=== PATIENT | female | born 1935 | race African-American/Black ===

== ENCOUNTER 2019-12-28 20:00 | Inpatient (IN) | payer MEDICARE, OTHER ==
[~2019-12-28] VITALS: Ht 167.6 cm; Wt 85.9 kg
[2019-12-28 20:45] VITALS: BP 154/46
[2019-12-28] MEDS ORDERED: ONDANSETRON PF 4 MG/2 ML VIAL. IVP PRN (22:30)
[2019-12-28 23:00] VITALS: BP 120/51
[2019-12-28] MEDS: IV NORMAL SALINE 1000ML BAG 1,000 ML IV SCH (23:05)
[2019-12-28] MEDS: ZOLPIDEM 5 MG TABLET. PO PRN (23:05)
[2019-12-29] VITALS (12 sets, daily range): BP systolic 113–143; BP diastolic 49–106
[2019-12-29] MEDS: fentaNYL PF VIAL 100 MCG/2 ML VIAL IVP PRN ×2 (02:21→04:55)
[2019-12-29] MEDS: IV NORMAL SALINE 1000ML BAG 1,000 ML IV SCH ×2 (08:30→16:35)
--- NOTE | 2019-12-29 09:38 | PDOC2 ---
MONTY COUCH ARTIFICIAL GLASS EYE MAKER 12/29/19 0938: CONSULT Date of Consult Date of Consult DATE: 12/29/19 TIME: 09:31 Reason for Consult Reason for Consult: cholecystitis Referring Physician Referring Physician: ER Identification/Chief Complaint Chief Complaint abdominal pain Source Source: Chart review, Patient History of Present Illness Reason for Visit: Epigastric pain x 1 week, started at [facility], imaging showed GB sludge, tx to [facility]--HIDA scan showed acute cholecystitis, GB not visualized--Tx to [facility] for surgical evaluation Pain is constant, no n/v, does have chronic constipation issues Takes chronic narcotics for fibromylagia Past Medical History Cardiovascular: HTN Pulmonary: Pulmonary embolus (DVT--in past ) Rheumatologic: Fibromyalgia Endocrine: Hypothyroidism Past Surgical History Past Surgical History: No pertinent history Family History Family History: Other (noncontributory to current illness ) Social History No ALCOHOL: none Lives: with Family Current Medications Current Medications Current Medications Sodium Chloride 1,000 ml @ 100 mls/hr Q10H IV Last administered on 12/28/19at 23:05; Start 12/28/19 at 22:30 Fentanyl Citrate (Fentanyl 2ml Vial) 50 mcg PRN Q3HRS PRN IVP PAIN Last administered on 12/29/19at 04:55; Start 12/28/19 at 22:30 Ondansetron HCl (Zofran) 4 mg PRN Q4HRS PRN IVP NAUSEA/VOMITING; Start 12/28/19 at 22:30 Zolpidem Tartrate (Ambien) 5 mg PRN QHS PRN PO INSOMNIA Last administered on 12/28/19at 23:05; Start 12/28/19 at 22:30 Allergies Allergies: Coded Allergies: lisinopril (Verified Allergy, Intermediate, Rash, 12/29/19) ROS General: No: Chills, Other (fevers ) PSYCHOLOGICAL ROS: No: Anxiety, Depression Eyes: No Blurry vision, No Double vision HEENT: No: Heacaches, Sore Throat Hematological and Lymphatic: YES: Blood Clots (past ); No: Bleeding Problems Respiratory: No: Cough, Shortness of breath Cardiovascular: No Chest Pain, No Palpitations Gastrointestinal: Yes Other (see hpi) Genitourinary: No Dysuria, No Hematuria Musculoskeletal: No Joint Pain, No Muscle Pain Neurological: No Impaired Coord/balance, No Numbness/Tingling Skin: No Pruritus, No Rash Physical Exam General: Alert, Oriented X3, Cooperative HEENT: Atraumatic, PERRLA Lungs: Clear to auscultation, Normal air movement Heart: Regular rate, Normal S1, Normal S2 Abdomen: Soft, Other (TTP epigastric ) Extremities: No clubbing, No cyanosis Skin: No rashes, No breakdown Neuro: Normal gait, Normal speech Psych/Mental Status: Mental status NL, Mood NL MUSCULOSKELETAL: No deformity, No swelling Vitals VITALS Vital Signs Date Time Temp Pulse Resp B/P (MAP) Pulse Ox O2 Delivery O2 Flow Rate FiO2 12/29/19 07:00 98.4 61 20 143/58 (86) 98 Room Air 98.4 Assessment/Plan Assessment/Plan Acute cholecystitis noted covid from 12/21--negative will plan lap olga lidia today FRITZ SANTIAGO MD 12/29/19 1353: CONSULT Assessment/Plan Assessment/Plan Pt seen and examined by myself; Pt admitted at [facility] due to abdominal pain, located in upper abdomen with vomiting. Eval at [facility] consistent with cholecystitis PMH/PSH/ROS/SH as above; exam: alert oriented no distress, lungs clear, heart RR and R, abdomen soft, tender RUQ with palpation, ext neg for edema; labs/xrays reviewed. A/P) Upper abdominal pain, HIDA noted, recommend lap olga lidia, the details and risks of surgery were discussed. She understands and would like to proceed. MONTY COUCH APRN Dec 29, 2019 09:38 FRITZ SANTIAGO MD Dec 29, 2019 13:53
[2019-12-29] MEDS: MORPHINE SULFATE 4 MG/ML VIAL. IV PRN ×3 (10:21→22:27)
[2019-12-29 10:24] LABS: CALCIUM 8.5 mg/dL (8.5-10.1); CREATININE 1.3 mg/dL (0.6-1.0); GFR 47.2; POTASSIUM 3.9 mmol/L (3.5-5.1)
[2019-12-29 10:25] LABS: BASO # 0.1 x10^3/uL (0.0-0.2); BASO % 1 % (0-3); EOS # 0.3 x10^3/uL (0.0-0.7); EOS % 7 % (0-3); HEMATOCRIT 30.4 % (36.0-47.0); HEMOGLOBIN 10.3 g/dL (12.0-15.5); LYMPH # 1.3 x10^3/uL (1.0-4.8); LYMPH % 31 % (24-48); MEAN CORPUSCULAR HEMOGLOBIN 30 pg (25-35); MEAN CORPUSCULAR HGB CONC 34 g/dL (31-37); MEAN CORPUSCULAR VOLUME 88 fL (79-100); MONO # 0.4 x10^3/uL (0.0-1.1); MONO % 10 % (0-9); NEUT % 50 % (31-73); PLATELET COUNT 200 x10^3/uL (140-400); RED BLOOD COUNT 3.47 x10^6/uL (3.50-5.40); RED CELL DISTRIBUTION WIDTH 14.6 % (11.5-14.5)
[2019-12-29 10:30] LABS: ALBUMIN 2.5 g/dL (3.4-5.0); ALBUMIN/GLOBULIN RATIO 0.7 (1.0-1.7); TOTAL BILIRUBIN 0.4 mg/dL (0.2-1.0); TOTAL PROTEIN 6.3 g/dL (6.4-8.2)
--- NOTE | 2019-12-29 11:18 | NUR ---
SS following for discharge planning. SS reviewed pt chart and discussed with pt RN. Pt is from home with spouse and is currently on room air. Pt having surgery today for lap olga lidia. SS will continue to follow for discharge planning.
[2019-12-29] MEDS ORDERED: LIDOCAINE 1% PF 5 ML VIAL. ONE (11:27)
[2019-12-29] MEDS ORDERED: fentaNYL PF VIAL 100 MCG/2 ML VIAL ONE ×2 (11:27→14:17)
[2019-12-29] MEDS ORDERED: ROCURONIUM 50 MG/5 ML VIAL. ONE (11:27)
[2019-12-29] MEDS ORDERED: PROPOFOL 10 MG/ML (20ML) VIAL. IV ONE (11:27)
[2019-12-29] MEDS ORDERED: IV RINGERS,LACTATED 1000ML 1,000 ML IV SCH (11:30)
[2019-12-29] MEDS ORDERED: PROCHLORPERAZINE 10 MG/2 ML VIAL. IV PRN (11:30)
[2019-12-29] MEDS ORDERED: fentaNYL PF VIAL 100 MCG/2 ML VIAL IV PRN (11:30)
--- NOTE | 2019-12-29 11:49 | HP ---
ADMIT DATE: HISTORY OF PRESENT ILLNESS: The patient is an 84-year-old -Wallis[place] female patient who started complaining of abdominal pain, nausea about a week ago. She was seen at [facility], was discharged home and was evaluated at [facility], was there for 2 days and from there, she was transferred to [facility] according to her where she was investigated and found to have acute cholecystitis and therefore she was transferred to [facility] for definitive surgical treatment. When I saw her, she was continued to complain of abdominal pain and stated that fentanyl is not really helping her so she was switched to morphine. PAST MEDICAL HISTORY: Significant for hypertension, hypothyroidism, fibromyalgia, osteoarthritis and osteoporosis. She has urge incontinence and bilateral sensorineural deafness. PAST SURGICAL HISTORY: Significant for cataract and lump removed from her left shoulder, it was actually benign. ALLERGIES: SHE IS ALLERGIC TO LISINOPRIL. MEDICATIONS: She is on amlodipine besylate 5 mg once a day. She is on morphine sulfate extended release 30 mg twice a day, hydrocodone/APAP 5/325 one tablet every 6 hours, gabapentin 300 mg 3 times a day, Ambien 5 mg at bedtime, Pataday 1 drop to both eyes daily. She is on Flonase 2 sprays to each nostril once a day, Colace 100 mg twice a day, sucralfate 1 gram 4 times a day, Protonix 40 mg once a day, metoclopramide 10 mg 3 times a day before meals and levothyroxine sodium 75 mcg once a day. FAMILY HISTORY: She has 1 living sister at the age of 92 and seemingly healthy. All 4 brothers have , one at age of 65 because of complication of diabetes, one at the age of 84 because of congestive heart failure, two of them because of complication of dementia, one at the age of 80 and one at the age of 88, she has 2 sisters who are . She does not know the cause of their . Her father at age of 88 because of COPD and mother at the age of 67 because of myocardial infarction. SOCIAL HISTORY: She is , has 2 sons and 1 daughter. She is an ex-smoker, quit 50 years ago. She does not drink alcohol. 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 REVIEW OF SYSTEMS: As per history of present illness. PHYSICAL EXAMINATION: GENERAL: When I examined her, she looked pale, but no jaundice or cyanosis. No lymphadenopathy, no thyromegaly. No jugular venous distention. No lower limb edema. VITAL SIGNS: Her heart rate was 52, blood pressure was 133/61, temperature 97.7, respiratory rate was 16, and oxygen saturation was 93%. HEAD, EYES, EARS, NOSE AND THROAT: Showed normocephalic, atraumatic. NECK: Supple. HEART: Showed normal first and second heart sounds. No gallop, rub or murmur. CHEST: Clear to auscultation. No crepitation or rhonchi. ABDOMEN: Distended, soft, nontender. No guarding or rigidity. No organomegaly. All hernial orifice intact. Bowel sounds normal. NEUROLOGIC: She was awake, alert, responding appropriately. All cranial nerves intact. EXTREMITIES: She moves extremities without difficulty. LABORATORY DATA: Showed a white cell count of 4000, hemoglobin 10, hematocrit 30, MCV 88 and platelet count of 200,000. Her chemistry showed a serum sodium 144, potassium 3.9, chloride 109, bicarbonate 27, anion gap of 8, BUN 10, creatinine 1.3, estimated GFR was 47 mL per minute. Her glucose was 86, calcium was 8.5. Total bilirubin, ALT were normal. AST and alkaline phosphatase slightly elevated. Total protein 6.3, albumin 2.5. She apparently has had a HIDA scan done, which basically showed that her gallbladder is not identified and this is compatible with acute cholecystitis in the appropriate clinical setting. Small bowel is not visualized by 1 hour following tracer administration which represents biliary dyskinesia in appropriate clinical setting. ASSESSMENT AND PLAN: The patient was admitted to [facility] for evaluation by the surgical team. DARIEN SZYMANSKI MD DR: FLO/nhung JOB#: [id number] / [id number]
[2019-12-29] MEDS ORDERED: IOHEXOL 300 MG/ML 50 ML VIAL. ONE (12:15)
[2019-12-29] MEDS ORDERED: SURGICEL HEMOSTAT 4X8 EACH. ONE (12:16)
[2019-12-29] MEDS ORDERED: BUPIVACAINE MPF 0.5% 30 ML VIAL. ONE (12:16)
[2019-12-29] MEDS ORDERED: DEXAMETHASONE SOD PHOS 4 MG/ML VIAL ONE ×2 (12:40)
[2019-12-29] MEDS ORDERED: ONDANSETRON PF 4 MG/2 ML VIAL. ONE (12:40)
[2019-12-29] MEDS ORDERED: NEOSTIGMINE METHYLSULFATE 5 MG/5 ML SYRINGE. ONE (13:34)
[2019-12-29] MEDS ORDERED: GLYCOPYRROLATE 1 MG/5 ML VIAL. ONE (13:34)
--- NOTE | 2019-12-29 13:55 | PDOC4 ---
Operative Note Operative Note Operative Note: Preoperative Diagnosis: Calculus cholecystitis Postoperative Diagnosis: Same Procedure: Laparoscopic cholecystectomy with intraoperative cholangiogram Surgeons: Rajesh Maintenance Aide: Jose Daniel QUINTEROS Anesthesia: Gen. Estimated Blood Loss: 10 mL Specimen: Gallbladder to pathology Drains: None Complications: None Indications: The patient is an 84-year-old female who was admitted with abdominal pain. Her evaluation is consistent with calculus cholecystitis. Surgical treatment was offered by means of a laparoscopic cholecystectomy. The risks of surgery were discussed which include bleeding, infection, bile duct injury, bile leak, pain, the potential for additional surgeries or procedures. The patient understands and would like to proceed. Description: The patient was taken to the operating room and laid supine on the operating table. General anesthesia was performed. The abdomen was prepped with ChloraPrep and draped in a standard surgical fashion. A small infraumbilical incision was made with a scalpel. The Veress needle was then in serted and a pneumoperitoneum was then created. A 5 mm trocar was then inserted and the laparoscope was introduced. In the upper midabdomen a 5 mm trocar was inserted and in the right upper quadrant two 2.3 mm mini lap graspers were inserted. The gallbladder was retracted cephalad. The cystic duct was dissected free from surrounding tissues. One clip was placed on the duct near the gallbladder junction. An opening was made in the duct and a cholangiocatheter placed within and secured with a clip. Using contrast dye and fluoroscopy an intraoperative cholangiogram was performed that appeared unremarkable. The clip and catheter were then withdrawn. Three clips were placed on the cystic duct and it was divided. The cystic artery was then identified, dissected free, doubly clipped and divided as well. The gallbladder was then mobilized away from the liver with cautery. The umbilical 5 millimeter trocar was exchanged for an 11 millimeter trocar. The gallbladder was then placed in an endoscopic bag and extracted at the umbilical trocar site. The fascia there was closed with an 0 Vicryl suture. All blood and irrigation fluid was suctioned and hemostasis was good. The remaining ports were removed and the pneumoperitoneum was relieved. The skin incisions were injected with half percent Marcaine with epinephrine, and all were closed using 4-0 Monocryl suture. Steri-Strips and dressings were then applied. The patient tolerated the procedure well and was sent to the recovery room in stable condition. At the end of the case all counts were correct. FRITZ SANTIAGO MD Dec 29, 2019 13:55
--- NOTE | 2019-12-29 14:03 | RAD ---
EXAM: INTRAOPERATIVE CHOLANGIOGRAM. HISTORY: Intraoperative cholangiogram with cholecystectomy. COMPARISON: None. FINDINGS: 4 fluoroscopic images are obtained intraoperatively during injection of the cystic duct remnant after cholecystectomy. There are no filling defects to suggest retained stones. The common duct is moderately dilated. There is a low insertion of the cystic duct remnant. Fluoroscopy time <1 minute. IMPRESSION: 1. Moderate common duct dilatation. Correlate for cholestasis to assess significance. 2. No evidence of retained stones. Electronically signed by: Gloria Pyle MD (12/29/2019 2:00 PM) [id number]
[2019-12-29] MEDS: fentaNYL PF VIAL 100 MCG/2 ML VIAL IV PRN ×2 (14:36→14:43)
[2019-12-29] MEDS ORDERED: MORPHINE SULFATE 2 MG/ML VIAL. ONE (14:38)
[2019-12-29] MEDS: MORPHINE SULFATE 2 MG/ML VIAL. IV PRN ×2 (14:43→15:00)
[2019-12-29] MEDS ORDERED: HYDROmorphone 2 MG/ML VIAL ONE (15:06)
[2019-12-29] MEDS: HYDROmorphone 2 MG/ML VIAL IV PRN ×3 (15:12→16:05)
[2019-12-29] MEDS: ZOLPIDEM 5 MG TABLET. PO PRN (22:27)
[2019-12-30] MEDS: IV NORMAL SALINE 1000ML BAG 1,000 ML IV SCH ×3 (02:23→21:42)
[2019-12-30 03:08] VITALS: BP 104/48
[2019-12-30] MEDS: MORPHINE SULFATE 4 MG/ML VIAL. IV PRN ×4 (04:26→21:41)
[2019-12-30 07:00] VITALS: BP 141/115
[2019-12-30] MEDS: fentaNYL PF VIAL 100 MCG/2 ML VIAL IV PRN (07:41)
[2019-12-30] MEDS ORDERED: SUCR1TAB PO (09:30)
[2019-12-30] MEDS ORDERED: ZOLP5TAB PO (09:30)
[2019-12-30] MEDS ORDERED: LEVO88TA4 PO (09:30)
[2019-12-30] MEDS ORDERED: GABA-585 PO (09:30)
[2019-12-30] MEDS ORDERED: METO10TA PO (09:30)
[2019-12-30] MEDS ORDERED: PANT20TA2 PO (09:30)
[2019-12-30] MEDS ORDERED: AMLO5TAB10 PO (09:30)
[2019-12-30] MEDS ORDERED: KETO5DRO89 OD (09:30)
[2019-12-30] MEDS ORDERED: DOCU-109 PO (09:30)
--- NOTE | 2019-12-30 10:58 | PN ---
DATE: 12/30/2019 SUBJECTIVE: The patient is resting, slightly propped up in bed, no apparent distress. She continued to complain of pain in the right upper quadrant. She said she was unable to eat, although she has passed gas. She has had her laparoscopic cholecystectomy with intraoperative cholangiogram done successfully yesterday. PHYSICAL EXAMINATION: GENERAL: When I examined her today, she looked well and was clearly in no apparent respiratory distress. No pallor, jaundice, cyanosis or thyromegaly. No jugular venous distention. No limb edema. VITAL SIGNS: Her heart rate was 69, blood pressure was 141/115, temperature was 98.5, respiratory rate was 17 and oxygen saturation was 95%. HEAD, EYES, EARS, NOSE AND THROAT: Showed normocephalic, atraumatic. NECK: Supple. HEART: Showed normal first and second heart sounds. No gallop or murmur. CHEST: Clear to auscultation. No crepitation or rhonchi. ABDOMEN: Distended, soft. Tenderness mostly in the right upper quadrant. No guarding or rigidity. No organomegaly. All hernial orifice intact. Bowel sounds normal. NEUROLOGIC: She is grossly intact. Her intake and output were incompletely recorded. LABORATORY DATA: She has no lab work done this morning; however, her COVID-19 by PCR was negative. As of yesterday, her hemoglobin was 10, hematocrit 30 with normal white cell count and platelets. Her chemistry showed a BUN of 10, creatinine 1.3. ASSESSMENT: Acute cholecystitis, status post laparoscopic cholecystectomy done successfully. The patient has multiple other medical problems including hypertension, hypothyroidism, fibromyalgia, osteoarthritis and osteoporosis, does have also urge incontinence and bilateral sensorineural deafness. PLAN: My plan is to reconcile all her medication and advance diet as tolerated and will be discharged home tomorrow. DARIEN SZYMANSKI MD DR: FLO/nhung JOB#: [id number] / [id number]
[2019-12-30 11:00] VITALS: BP 153/64
[2019-12-30] MEDS: amLODIPine BESYLATE 5 MG TABLET PO SCH (11:10)
[2019-12-30] MEDS: KETOTIFEN FUMARATE 0.025% OPHTH SOLUTION BOTTLE. OD SCH ×2 (11:11→21:41)
[2019-12-30] MEDS: METOCLOPRAMIDE 10 MG TABLET. PO SCH ×2 (11:11→17:12)
[2019-12-30] MEDS: SUCRALFATE 1 GM TABLET. PO SCH ×3 (11:11→21:41)
[2019-12-30] MEDS: LEVOTHYROXINE 88 MCG TABLET PO SCH (11:11)
[2019-12-30] MEDS: DOCUSATE SODIUM 100 MG CAPSULE. PO SCH ×2 (11:11→21:41)
[2019-12-30] MEDS: PANTOPRAZOLE 40 MG TABLET.DR. PO SCH (11:13)
--- NOTE | 2019-12-30 12:07 | PDOC ---
SURGICAL PROGRESS NOTE Subjective resting pain issues, acute on chronic no emesis Vital Signs Vital Signs Date Time Temp Pulse Resp B/P (MAP) Pulse Ox O2 Delivery O2 Flow Rate FiO2 12/30/19 12:00 20 12/30/19 11:11 Room Air 12/30/19 11:10 69 141/115 12/30/19 07:00 98.5 95 98.5 12/29/19 17:59 2.0 I&O Intake and Output 12/30/19 07:00 Intake Total 950 ml Output Total 5 ml Balance 945 ml Intake IV Total 950 ml Output Estimated Blood Loss 5 ml # Voids 3 General: Alert, Oriented X3, Cooperative Abdomen: Soft, Other (lap dressings dry) Labs Laboratory Tests Test 12/28/19 23:00 12/29/19 09:50 Coronavirus (COVID-19)(PCR) Negative (NEGATIVE) White Blood Count 4.0 x10^3/uL (4.0-11.0) Red Blood Count 3.47 x10^6/uL (3.50-5.40) Hemoglobin 10.3 g/dL (12.0-15.5) Hematocrit 30.4 % (36.0-47.0) Mean Corpuscular Volume 88 fL (79-100) Mean Corpuscular Hemoglobin 30 pg (25-35) Mean Corpuscular Hemoglobin Concent 34 g/dL (31-37) Red Cell Distribution Width 14.6 % (11.5-14.5) Platelet Count 200 x10^3/uL (140-400) Neutrophils (%) (Auto) 50 % (31-73) Lymphocytes (%) (Auto) 31 % (24-48) Monocytes (%) (Auto) 10 % (0-9) Eosinophils (%) (Auto) 7 % (0-3) Basophils (%) (Auto) 1 % (0-3) Neutrophils # (Auto) 2.0 x10^3/uL (1.8-7.7) Lymphocytes # (Auto) 1.3 x10^3/uL (1.0-4.8) Monocytes # (Auto) 0.4 x10^3/uL (0.0-1.1) Eosinophils # (Auto) 0.3 x10^3/uL (0.0-0.7) Basophils # (Auto) 0.1 x10^3/uL (0.0-0.2) Sodium Level 144 mmol/L (136-145) Potassium Level 3.9 mmol/L (3.5-5.1) Chloride Level 109 mmol/L (98-107) Carbon Dioxide Level 27 mmol/L (21-32) Anion Gap 8 (6-14) Blood Urea Nitrogen 10 mg/dL (7-20) Creatinine 1.3 mg/dL (0.6-1.0) Estimated GFR (Cockcroft-Gault) 47.2 BUN/Creatinine Ratio 8 (6-20) Glucose Level 86 mg/dL (70-99) Calcium Level 8.5 mg/dL (8.5-10.1) Total Bilirubin 0.4 mg/dL (0.2-1.0) Aspartate Amino Transf (AST/SGOT) 61 U/L (15-37) Alanine Aminotransferase (ALT/SGPT) 51 U/L (14-59) Alkaline Phosphatase 151 U/L (46-116) Total Protein 6.3 g/dL (6.4-8.2) Albumin 2.5 g/dL (3.4-5.0) Albumin/Globulin Ratio 0.7 (1.0-1.7) Assessment/Plan s/p olga lidia can dc when medically ready Justicifation of Admission Dx: Justifications for Admission: Justification of Admission Dx: Yes Comments: cholecystitis MONTY COUCH BORING INSPECTOR Dec 30, 2019 12:07
[2019-12-30] MEDS: GABAPENTIN 100 MG CAPSULE. PO SCH ×2 (12:54→21:41)
--- NOTE | 2019-12-30 14:37 | NUR ---
SS following up with discharge planning. SS reviewed pt chart and discussed with pt RN. Pt is currently on room air. Pt had surgery 12/29/2019. Per RN, possible discharge to home tomorrow. SS will continue to follow for discharge planning.
[2019-12-30 15:00] VITALS: BP 102/77
[2019-12-30] MEDS ORDERED: SIMETHICONE 80 MG TAB.CHEW PO PRN (15:30)
--- NOTE | 2019-12-30 15:49 | EKG ---
[facility] [address] [place] [address] Test Date: 2019-12-30 Test Time: 15:43:05 Pat Name: JOSELITO HENRY Department: Room: 442 Gender: F Social Media Campaign Manager: FITZ : 1935 Requested By: DARIEN SZYMANSKI Order Number: [id number] Reading MD: Measurements Intervals Rogers Rate: 75 P: 35 SC: 130 QRS: -9 QRSD: 82 T: 36 QT: 356 QTc: 400 Interpretive Statements SINUS RHYTHM POSSIBLE LEFT ATRIAL ABNORMALITY LEFTWARD AXIS POSSIBLY ABNORMAL ECG RI6.02 No previous ECG available for comparison
--- NOTE | 2019-12-30 18:10 | PATHOLOGY ---
[facility] Accession Number: [id number] . 01 Material submitted: . gallbladder - GALLBLADDER AND CONTENTS . 01 Clinical history: . cholecystitis . 02 Diagnosis: Gallbladder, laparoscopic cholecystectomy: - Chronic follicular and early mild acute cholecystitis with focally increased eosinophils. LBQ 12/30/2019 1605 Local . 02 Comment: There are no calculi identified within the gallbladder lumen or specimen container. There is no evidence of malignancy. (JPM/db; 12/30/2019) . 02 Electronically signed: . Filiberto Fragoso MD, Pathologist NPI- [id number] . 01 Gross description: . The specimen is received in formalin, labeled "Klugh, Aleksandra, gallbladder and contents" and consists of a previously punctured pink-martinez gallbladder measuring 9.7 x 2.7 x 0.6 cm. The margin is inked. Opening reveals granular green bile and no stones are present. The mucosa is inflamed pink-martinez with a wall thickness of 0.1 cm. No lymph nodes or gross lesions are identified. Senior Staff Specialized Employment sections are submitted in A1. ([facility]; 12/29/2019) JFQ/JFQ 12/30/2019 1719 Local . 02 Pathologist provided ICD-10: K81.2 . 02 CPT . 570383 Specimen Comment: A courtesy copy of this report has been sent to [phone] Specimen Comment: [id number], Specimen Comment: Report sent to ,DR SAUCEDA / DR SZYMANSKI Performed at: [address], [place], [place] [id number] MD Jarrett Gore MD Phone: [phone] Performed at: 02 [facility] [address] [place], [place] [id number] MD Filiberto Fragoso MD Phone: [phone]
[2019-12-30 19:50] VITALS: BP 151/61
[2019-12-30 23:00] VITALS: BP 147/62
[2019-12-31 03:00] VITALS: BP 153/54
[2019-12-31] MEDS: MORPHINE SULFATE 4 MG/ML VIAL. IV PRN ×4 (04:42→19:42)
[2019-12-31 05:49] LABS: ALBUMIN 2.5 g/dL (3.4-5.0); ALBUMIN/GLOBULIN RATIO 0.7 (1.0-1.7); CALCIUM 8.1 mg/dL (8.5-10.1); GFR 63.9; POTASSIUM 4.3 mmol/L (3.5-5.1); TOTAL BILIRUBIN 1.5 mg/dL (0.2-1.0); TOTAL PROTEIN 6.1 g/dL (6.4-8.2)
[2019-12-31] MEDS: LEVOTHYROXINE 88 MCG TABLET PO SCH (05:53)
[2019-12-31 06:20] LABS: HEMATOCRIT 29.7 % (36.0-47.0); HEMOGLOBIN 10.1 g/dL (12.0-15.5); RED BLOOD COUNT 3.37 x10^6/uL (3.50-5.40); RED CELL DISTRIBUTION WIDTH 14.8 % (11.5-14.5); WHITE BLOOD COUNT 8.1 x10^3/uL (4.0-11.0)
[2019-12-31 07:15] VITALS: BP 128/50
[2019-12-31] MEDS: METOCLOPRAMIDE 10 MG TABLET. PO SCH ×3 (08:27→16:30)
[2019-12-31] MEDS: SUCRALFATE 1 GM TABLET. PO SCH ×4 (08:27→21:45)
[2019-12-31] MEDS: KETOTIFEN FUMARATE 0.025% OPHTH SOLUTION BOTTLE. OD SCH ×2 (08:27→21:45)
[2019-12-31] MEDS: PANTOPRAZOLE 40 MG TABLET.DR. PO SCH (08:27)
[2019-12-31] MEDS: DOCUSATE SODIUM 100 MG CAPSULE. PO SCH ×2 (08:27→21:45)
[2019-12-31] MEDS: amLODIPine BESYLATE 5 MG TABLET PO SCH (08:27)
[2019-12-31] MEDS: IV NORMAL SALINE 1000ML BAG 1,000 ML IV SCH ×2 (08:34→19:42)
[2019-12-31] MEDS: GABAPENTIN 100 MG CAPSULE. PO SCH ×3 (10:28→21:45)
--- NOTE | 2019-12-31 10:32 | PN ---
DATE: 12/31/2019 SUBJECTIVE: The patient is resting, slightly propped up in bed, in no apparent distress. She continued to complain of pain in the epigastric and right upper quadrant. She is unable to tolerate her food. Her liver enzymes have dramatically risen, in fact, both bilirubin and alkaline phosphatase have dramatically risen, suggesting it probably has stone in her common bile duct. PHYSICAL EXAMINATION: GENERAL: When I examined her, she looked pale, but no jaundice, cyanosis or thyromegaly. No jugular venous distention. No limb edema. VITAL SIGNS: Her heart rate was 71, blood pressure was 128/50, temperature was 99, respiratory rate was 16, and oxygen saturation was 100%. HEAD, EYES, EARS, NOSE AND THROAT: Normocephalic, atraumatic. NECK: Supple. HEART: Showed normal first and second heart sounds. No gallop, rub or murmur. CHEST: Clear to auscultation. No crepitation or rhonchi. ABDOMEN: Distended, soft. Tenderness mostly in the epigastric and right upper quadrant area and there is no guarding or rigidity. No organomegaly. All hernial orifice intact. Bowel sounds normal. NEUROLOGIC: She is awake, alert, responding appropriately. All cranial nerves intact. She moves extremities without difficulty. Her intake was 915, output was recorded. LABORATORY DATA: Her lab work this morning showed a serum sodium 142, potassium 4.3, chloride 109, bicarbonate 22, anion gap of 11, BUN 7, creatinine 1, estimated GFR was 64 mL per minute. Her glucose was 101, calcium was 8.1. Total bilirubin is 1.5. AST, ALT are all elevated. Alkaline phosphatase has dramatically risen to 321. Total bilirubin was 6.1, albumin 2.5. Her white cell count was 8000, hemoglobin 10, hematocrit 30, MCV 88 and platelet count 215,000. ASSESSMENT: 1. Acute cholecystitis, status post laparoscopic cholecystectomy. 2. The patient's liver enzymes have dramatically risen in a pattern suggestive of biliary obstruction concerning for choledocholithiasis. 3. The patient has multiple other medical problems including: A. Hypertension. B. Hypothyroidism. C. Fibromyalgia. D. Osteoarthritis and osteoporosis. PLAN: My plan is to order abdominal ultrasound and discuss the finding with the surgical team as she might require ERCP and add serum lipase in her labs this morning. DARIEN SZYMANSKI MD DR: Maribel JOB#: [id number] / [id number]
[2019-12-31 11:00] VITALS: BP 124/59
--- NOTE | 2019-12-31 11:54 | NUR ---
Patient NPO for US. 1100 and 1130 medication dose held.
--- NOTE | 2019-12-31 12:41 | PDOC2 ---
GI CONSULT Reason For Consult: Abnormal LFT's after cholecystectomy HPI: HPI: Pleasant 84 y/o female we are asked to see re: above. Presented to [facility] prior to transfer here with abdominal pain; had no labs, but did have HIDA with non-viz GB, no other imaging. Had L/S olga lidia with IOC on 12/28. IOC read as w/o stones bu t dilated CBD w/o focal stricture. Had normal LFT's pre-op. Today transaminases, AP and bili all up some as well as lipase. Presenting pain is better, now with what seems incisional complaints. Had not been able to tolerate po w/o N, V. Did have CT at [facility] in 2017 with "prominent" common duct and distended GB. Long h/o GERD on PPI and prokinetic. Occasional dysphagia; EGD with dilation x 2 at [facility]. Unclearly had stricture. No PUD, liver or pancreatic history. Remotely quit smoking. No alcohol use. Chronic constipation maybe related to chronic narc use; takes Colace and Ducolax. No chronic diarrhea or overt bleeding. Wt. stable. Appeitite I think OK but avoid eating due to the "dysphagia". Colonoscopy x 2 with polyps on initial one, then OK second. HIDA at [facility] mentions marked delay in tracer reaching duodenum and "biliary dyskinesia". PMH: PMH: HTN, hypothyroidism, FMS, OA, OP, PIPPA, deafness. S/P ECCE, excision benign lesion from left shoulder. FH: Family History: CAD, DM Social History: Smoke: No ALCOHOL: none Drugs: None ROS: GEN: Denies fevers, chills, sweats HEENT: Denies blurred vision, sore throat CV: Denies chest pain RESP: Denies shortness of air, cough GI: Per HPI : Denies hematuria, dysuria ENDO: Denies weight changes NEURO: Denies confusion, dizziness MSK: Denies weakness, joint pain/swelling SKIN: Denies jaundice, pruritus Vitals: Vitals: Vital Signs Date Time Temp Pulse Resp B/P (MAP) Pulse Ox O2 Delivery O2 Flow Rate FiO2 12/31/19 09:13 Room Air 12/31/19 08:27 71 128/50 12/31/19 07:15 99.0 16 100 99.0 12/30/19 16:05 2.0 Labs: Labs: Laboratory Tests Test 12/31/19 04:40 White Blood Count 8.1 x10^3/uL (4.0-11.0) Red Blood Count 3.37 x10^6/uL (3.50-5.40) Hemoglobin 10.1 g/dL (12.0-15.5) Hematocrit 29.7 % (36.0-47.0) Mean Corpuscular Volume 88 fL (79-100) Mean Corpuscular Hemoglobin 30 pg (25-35) Mean Corpuscular Hemoglobin Concent 34 g/dL (31-37) Red Cell Distribution Width 14.8 % (11.5-14.5) Platelet Count 215 x10^3/uL (140-400) Sodium Level 142 mmol/L (136-145) Potassium Level 4.3 mmol/L (3.5-5.1) Chloride Level 109 mmol/L (98-107) Carbon Dioxide Level 22 mmol/L (21-32) Anion Gap 11 (6-14) Blood Urea Nitrogen 7 mg/dL (-20) Creatinine 1.0 mg/dL (0.6-1.0) Estimated GFR (Cockcroft-Gault) 63.9 BUN/Creatinine Ratio 7 (6-20) Glucose Level 101 mg/dL (70-99) Calcium Level 8.1 mg/dL (8.5-10.1) Total Bilirubin 1.5 mg/dL (0.2-1.0) Aspartate Amino Transf (AST/SGOT) 207 U/L (15-37) Alanine Aminotransferase (ALT/SGPT) 89 U/L (14-59) Alkaline Phosphatase 321 U/L (46-116) Total Protein 6.1 g/dL (6.4-8.2) Albumin 2.5 g/dL (3.4-5.0) Albumin/Globulin Ratio 0.7 (1.0-1.7) Lipase 2168 U/L (73-393) Allergies: Coded Allergies: lisinopril (Verified Allergy, Intermediate, Rash, 12/29/19) Medications: Current Medications Medications (Trade) Dose Ordered Sig/Charisse Route PRN Reason Start Time Stop Time Status Last Admin Dose Admin Gabapentin (Neurontin) 100 mg TID PO 12/30/19 14:00 12/31/19 10:28 Simethicone (Gas-X) 80 mg PRN AFTMEALHC PRN PO GAS / BLOATING 12/30/19 15:30 12/30/19 15:43 Imaging: Imaging: IOC reviewed. Drains well. Kind of a "shelf" appearance to distal duct but open. PE: GEN: NAD HEENT: Atraumatic, PERRLA LUNGS: CTAB HEART: RRR, no murmurs ABD: NABS, S/ND/incisional tenderness, no masses EXTREMITY: No edema SKIN: No rashes, no jaundice NEURO/PSYCH: A & O 3 A/P: A/P: IMP: Abnormal LFT's, lipase post-olga lidia. Sometimes can be from ductal manipulation. 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 Cholecystectomy can unmask this as loss of "pressure sink". Given no progressive issues since 2017 CT, seems unlikely malignant. GERD Occasional dysphagia; since on prokinetic maybe has presbyesophagus. Probable OIC. H/o colon polyps with negative second surveillance exam. REC: Start/continue PPI. Repeat LFT's in AM. If progressive rise, further investigation. OK to try diet. --further rec's pending. MARIA DE JESUS HALL MD Dec 31, 2019 12:40
--- NOTE | 2019-12-31 13:55 | RAD ---
Abdominal ultrasound 12/31/2019. Reason for exam: Abnormal liver enzymes. Recent cholecystectomy. FINDINGS: The liver is homogeneous in echotexture. No focal lesion is seen. No intrahepatic biliary ductal dilatation is seen. The common bile duct is borderline dilated with diameter of 7 mm. The right kidney shows no solid mass or obstruction. It measures 9.7 cm in length. There is a 3.7 cm cyst at the upper pole. Pancreas was poorly seen due to overlying bowel gas. The abdominal aorta was also not well seen. The IVC is patent near the liver. IMPRESSION: No apparent liver abnormality. The intrahepatic biliary tree is borderline dilated, although probably within normal limits for the patient's advanced age. Electronically signed by: Albert Ford Jr., MD (12/31/2019 1:52 PM) [id number]
--- NOTE | 2019-12-31 14:06 | PDOC ---
SURGICAL PROGRESS NOTE Subjective Pt with c/o abd pain and unable to eat Vital Signs Vital Signs Date Time Temp Pulse Resp B/P (MAP) Pulse Ox O2 Delivery O2 Flow Rate FiO2 12/31/19 11:00 98.6 72 18 124/59 (80) 100 Room Air 98.6 12/30/19 16:05 2.0 I&O l Intake and Output 12/31/19 07:00 Intake Total 310 ml Balance 310 ml Intake Oral 310 ml # Voids 3 General: Alert, Oriented X3, Cooperative, mild distress Abdomen: Soft, Other (mild TTP epigastric) Labs Laboratory Tests Test 12/31/19 04:40 White Blood Count 8.1 x10^3/uL (4.0-11.0) Red Blood Count 3.37 x10^6/uL (3.50-5.40) Hemoglobin 10.1 g/dL (12.0-15.5) Hematocrit 29.7 % (36.0-47.0) Mean Corpuscular Volume 88 fL (79-100) Mean Corpuscular Hemoglobin 30 pg (25-35) Mean Corpuscular Hemoglobin Concent 34 g/dL (31-37) Red Cell Distribution Width 14.8 % (11.5-14.5) Platelet Count 215 x10^3/uL (140-400) Sodium Level 142 mmol/L (136-145) Potassium Level 4.3 mmol/L (3.5-5.1) Chloride Level 109 mmol/L (98-107) Carbon Dioxide Level 22 mmol/L (21-32) Anion Gap 11 (6-14) Blood Urea Nitrogen 7 mg/dL (7-20) Creatinine 1.0 mg/dL (0.6-1.0) Estimated GFR (Cockcroft-Gault) 63.9 BUN/Creatinine Ratio 7 (6-20) Glucose Level 101 mg/dL (70-99) Calcium Level 8.1 mg/dL (8.5-10.1) Total Bilirubin 1.5 mg/dL (0.2-1.0) Aspartate Amino Transf (AST/SGOT) 207 U/L (15-37) Alanine Aminotransferase (ALT/SGPT) 89 U/L (14-59) Alkaline Phosphatase 321 U/L (46-116) Total Protein 6.1 g/dL (6.4-8.2) Albumin 2.5 g/dL (3.4-5.0) Albumin/Globulin Ratio 0.7 (1.0-1.7) Lipase 2168 U/L (73-393) Laboratory Tests Test 12/31/19 04:40 White Blood Count 8.1 x10^3/uL (4.0-11.0) Red Blood Count 3.37 x10^6/uL (3.50-5.40) Hemoglobin 10.1 g/dL (12.0-15.5) Hematocrit 29.7 % (36.0-47.0) Mean Corpuscular Volume 88 fL (79-100) Mean Corpuscular Hemoglobin 30 pg (25-35) Mean Corpuscular Hemoglobin Concent 34 g/dL (31-37) Red Cell Distribution Width 14.8 % (11.5-14.5) Platelet Count 215 x10^3/uL (140-400) Sodium Level 142 mmol/L (136-145) Potassium Level 4.3 mmol/L (3.5-5.1) Chloride Level 109 mmol/L (98-107) Carbon Dioxide Level 22 mmol/L (21-32) Anion Gap 11 (6-14) Blood Urea Nitrogen 7 mg/dL (7-20) Creatinine 1.0 mg/dL (0.6-1.0) Estimated GFR (Cockcroft-Gault) 63.9 BUN/Creatinine Ratio 7 (6-20) Glucose Level 101 mg/dL (70-99) Calcium Level 8.1 mg/dL (8.5-10.1) Total Bilirubin 1.5 mg/dL (0.2-1.0) Aspartate Amino Transf (AST/SGOT) 207 U/L (15-37) Alanine Aminotransferase (ALT/SGPT) 89 U/L (14-59) Alkaline Phosphatase 321 U/L (46-116) Total Protein 6.1 g/dL (6.4-8.2) Albumin 2.5 g/dL (3.4-5.0) Albumin/Globulin Ratio 0.7 (1.0-1.7) Lipase 2168 U/L (73-393) Problem List elevated LFTs US essentially normal appreciate GI w/u cont supportive care Justicifation of Admission Dx: Justifications for Admission: Justification of Admission Dx: Yes ARACELIS GORMAN MD 11, 2020 14:06
[2019-12-31 15:00] VITALS: BP 139/50
[2019-12-31 19:00] VITALS: BP 131/53
[2019-12-31 23:00] VITALS: BP 139/46
[2019-12-31] MEDS: ZOLPIDEM 5 MG TABLET. PO PRN (23:09)
[2020-01-01 03:00] VITALS: BP 121/46
[2020-01-01] MEDS: IV NORMAL SALINE 1000ML BAG 1,000 ML IV SCH (04:40)
[2020-01-01] MEDS: MORPHINE SULFATE 4 MG/ML VIAL. IV PRN ×5 (04:40→21:17)
[2020-01-01 05:46] LABS: HEMATOCRIT 29.5 % (36.0-47.0); HEMOGLOBIN 9.9 g/dL (12.0-15.5); RED BLOOD COUNT 3.36 x10^6/uL (3.50-5.40); RED CELL DISTRIBUTION WIDTH 14.9 % (11.5-14.5); WHITE BLOOD COUNT 7.2 x10^3/uL (4.0-11.0)
[2020-01-01] MEDS: LEVOTHYROXINE 88 MCG TABLET PO SCH (05:54)
[2020-01-01 05:56] LABS: ALBUMIN 2.3 g/dL (3.4-5.0); ALBUMIN/GLOBULIN RATIO 0.7 (1.0-1.7); CALCIUM 7.9 mg/dL (8.5-10.1); GFR 63.9; POTASSIUM 3.1 mmol/L (3.5-5.1); TOTAL BILIRUBIN 0.6 mg/dL (0.2-1.0); TOTAL PROTEIN 5.8 g/dL (6.4-8.2)
[2020-01-01 07:59] VITALS: BP 133/63
[2020-01-01] MEDS: SUCRALFATE 1 GM TABLET. PO SCH ×4 (08:27→21:10)
[2020-01-01] MEDS: METOCLOPRAMIDE 10 MG TABLET. PO SCH ×3 (08:28→16:25)
[2020-01-01] MEDS: PANTOPRAZOLE 40 MG TABLET.DR. PO SCH (08:28)
[2020-01-01] MEDS: DOCUSATE SODIUM 100 MG CAPSULE. PO SCH ×2 (08:28→21:10)
[2020-01-01] MEDS: GABAPENTIN 100 MG CAPSULE. PO SCH ×3 (08:28→21:10)
[2020-01-01] MEDS: amLODIPine BESYLATE 5 MG TABLET PO SCH (08:28)
[2020-01-01] MEDS: KETOTIFEN FUMARATE 0.025% OPHTH SOLUTION BOTTLE. OD SCH ×2 (08:29→21:17)
--- NOTE | 2020-01-01 09:26 | PN ---
DATE: 01/01/2020 SUBJECTIVE: The patient is resting, slightly propped up in bed, in no apparent distress, awake, alert. She is feeling generally better, although she is worried about going home. Her liver enzymes have definitely risen yesterday as well as her lipase was 2168. However, all her liver enzymes and serum lipase are down. PHYSICAL EXAMINATION: GENERAL: When I examined her, she looked pale, no jaundice, cyanosis, or thyromegaly. No jugular venous distension. No lower limb edema. VITAL SIGNS: Her heart rate was 74, blood pressure was 121/46, temperature 98.7, respiratory rate was 18, and oxygen saturation was 90%. HEAD, EYES, EARS, NOSE, AND THROAT: Normocephalic, atraumatic. NECK: Supple. HEART: Showed normal first and second heart sounds. No gallop, rub, or murmur. CHEST: Clear to auscultation. No crepitation or rhonchi. ABDOMEN: Slightly distended, soft with tenderness mostly in the right upper quadrant. No guarding or rigidity. No organomegaly. All hernial orifice intact. Bowel sounds normal. NEUROLOGIC: She is grossly intact. Her intake and output were incompletely recorded. LABORATORY DATA: Her lab work this morning showed a white cell count 7200; hemoglobin 10; hematocrit 30; MCV 88; and platelet count of 200,000. Her chemistry showed a serum sodium 143, potassium 3.1, chloride 109, bicarbonate 22, anion gap of 12, BUN 6, creatinine 1, estimated GFR was 64 mL per minute. Her glucose was 73, calcium was 7.9. Total bilirubin, AST, ALT, alkaline phosphatase are all trending down. Her total protein was 5.8, albumin 2.3 and serum lipase is down to 338 from 2168. ASSESSMENT: 1. Acute cholecystitis, status post laparoscopic cholecystectomy. 2. Acute pancreatitis and evidence of what seemed to be biliary obstruction that has resolved. Her lipase is down and her total bilirubin and liver enzymes are all trending down. 3. The patient has multiple other medical problems, including: A. Hypertension. B. Hypothyroidism. C. Fibromyalgia. D. Osteoarthritis and osteoporosis. E. She has also hypokalemia. PLAN: My plan is to replenish her potassium, observe her here for another day and if all is well and her liver enzymes are trending down further and she has no symptoms, she can be discharged home. DARIEN SZYMANSKI MD DR: FLO/nhung JOB#: [id number] / [id number]
--- NOTE | 2020-01-01 11:34 | PDOC ---
SURGICAL PROGRESS NOTE Subjective Pt feels better, fadi diet, pain improved Vital Signs Vital Signs Date Time Temp Pulse Resp B/P (MAP) Pulse Ox O2 Delivery O2 Flow Rate FiO2 01/01/20 09:07 Room Air 01/01/20 08:28 74 121/46 01/01/20 08:00 2.0 01/01/20 07:59 98.7 18 90 98.7 I&O Intake and Output 01/01/20 07:00 Intake Total 180 ml Balance 180 ml Intake Oral 180 ml # Voids 6 General: Alert, Oriented X3, Cooperative, No acute distress Abdomen: Soft, Other (appropriate TTP at incisions) Labs Laboratory Tests Test 12/31/19 04:40 01/01/20 04:55 White Blood Count 8.1 x10^3/uL (4.0-11.0) 7.2 x10^3/uL (4.0-11.0) Red Blood Count 3.37 x10^6/uL (3.50-5.40) 3.36 x10^6/uL (3.50-5.40) Hemoglobin 10.1 g/dL (12.0-15.5) 9.9 g/dL (12.0-15.5) Hematocrit 29.7 % (36.0-47.0) 29.5 % (36.0-47.0) Mean Corpuscular Volume 88 fL (79-100) 88 fL (79-100) Mean Corpuscular Hemoglobin 30 pg (25-35) 30 pg (25-35) Mean Corpuscular Hemoglobin Concent 34 g/dL (31-37) 34 g/dL (31-37) Red Cell Distribution Width 14.8 % (11.5-14.5) 14.9 % (11.5-14.5) Platelet Count 215 x10^3/uL (140-400) 200 x10^3/uL (140-400) Sodium Level 142 mmol/L (136-145) 143 mmol/L (136-145) Potassium Level 4.3 mmol/L (3.5-5.1) 3.1 mmol/L (3.5-5.1) Chloride Level 109 mmol/L (98-107) 109 mmol/L (98-107) Carbon Dioxide Level 22 mmol/L (21-32) 22 mmol/L (21-32) Anion Gap 11 (6-14) 12 (6-14) Blood Urea Nitrogen 7 mg/dL (7-20) 6 mg/dL (7-20) Creatinine 1.0 mg/dL (0.6-1.0) 1.0 mg/dL (0.6-1.0) Estimated GFR (Cockcroft-Gault) 63.9 63.9 BUN/Creatinine Ratio 7 (6-20) 6 (6-20) Glucose Level 101 mg/dL (70-99) 73 mg/dL (70-99) Calcium Level 8.1 mg/dL (8.5-10.1) 7.9 mg/dL (8.5-10.1) Total Bilirubin 1.5 mg/dL (0.2-1.0) 0.6 mg/dL (0.2-1.0) Aspartate Amino Transf (AST/SGOT) 207 U/L (15-37) 100 U/L (15-37) Alanine Aminotransferase (ALT/SGPT) 89 U/L (14-59) 62 U/L (14-59) Alkaline Phosphatase 321 U/L (46-116) 256 U/L (46-116) Total Protein 6.1 g/dL (6.4-8.2) 5.8 g/dL (6.4-8.2) Albumin 2.5 g/dL (3.4-5.0) 2.3 g/dL (3.4-5.0) Albumin/Globulin Ratio 0.7 (1.0-1.7) 0.7 (1.0-1.7) Lipase 2168 U/L (73-393) 333 U/L (73-393) Laboratory Tests Test 01/01/20 04:55 White Blood Count 7.2 x10^3/uL (4.0-11.0) Red Blood Count 3.36 x10^6/uL (3.50-5.40) Hemoglobin 9.9 g/dL (12.0-15.5) Hematocrit 29.5 % (36.0-47.0) Mean Corpuscular Volume 88 fL (79-100) Mean Corpuscular Hemoglobin 30 pg (25-35) Mean Corpuscular Hemoglobin Concent 34 g/dL (31-37) Red Cell Distribution Width 14.9 % (11.5-14.5) Platelet Count 200 x10^3/uL (140-400) Sodium Level 143 mmol/L (136-145) Potassium Level 3.1 mmol/L (3.5-5.1) Chloride Level 109 mmol/L (98-107) Carbon Dioxide Level 22 mmol/L (21-32) Anion Gap 12 (6-14) Blood Urea Nitrogen 6 mg/dL (7-20) Creatinine 1.0 mg/dL (0.6-1.0) Estimated GFR (Cockcroft-Gault) 63.9 BUN/Creatinine Ratio 6 (6-20) Glucose Level 73 mg/dL (70-99) Calcium Level 7.9 mg/dL (8.5-10.1) Total Bilirubin 0.6 mg/dL (0.2-1.0) Aspartate Amino Transf (AST/SGOT) 100 U/L (15-37) Alanine Aminotransferase (ALT/SGPT) 62 U/L (14-59) Alkaline Phosphatase 256 U/L (46-116) Total Protein 5.8 g/dL (6.4-8.2) Albumin 2.3 g/dL (3.4-5.0) Albumin/Globulin Ratio 0.7 (1.0-1.7) Lipase 333 U/L (73-393) Problem List s/p lap olga lidia labs improving cont supportive care, agree with plans per primary for observation prior to d/c Justicifation of Admission Dx: Justifications for Admission: Justification of Admission Dx: Yes ARACELIS GORMAN MD Jan 01, 2020 11:34
[2020-01-01 11:59] VITALS: BP 138/55
--- NOTE | 2020-01-01 12:10 | PDOC ---
G I PROGRESS NOTE Subjective Ate a few bites for breakfast. Did not vomit. Trying to eat lunch. Physical Exam Lungs clear. RRR Abdomen soft, not distended. Review of Relevant I have reviewed the following items jone (where applicable) has been applied. Labs Laboratory Tests Test 12/31/19 04:40 01/01/20 04:55 White Blood Count 8.1 x10^3/uL (4.0-11.0) 7.2 x10^3/uL (4.0-11.0) Red Blood Count 3.37 x10^6/uL (3.50-5.40) 3.36 x10^6/uL (3.50-5.40) Hemoglobin 10.1 g/dL (12.0-15.5) 9.9 g/dL (12.0-15.5) Hematocrit 29.7 % (36.0-47.0) 29.5 % (36.0-47.0) Mean Corpuscular Volume 88 fL (79-100) 88 fL (79-100) Mean Corpuscular Hemoglobin 30 pg (25-35) 30 pg (25-35) Mean Corpuscular Hemoglobin Concent 34 g/dL (31-37) 34 g/dL (31-37) Red Cell Distribution Width 14.8 % (11.5-14.5) 14.9 % (11.5-14.5) Platelet Count 215 x10^3/uL (140-400) 200 x10^3/uL (140-400) Sodium Level 142 mmol/L (136-145) 143 mmol/L (136-145) Potassium Level 4.3 mmol/L (3.5-5.1) 3.1 mmol/L (3.5-5.1) Chloride Level 109 mmol/L (98-107) 109 mmol/L (98-107) Carbon Dioxide Level 22 mmol/L (21-32) 22 mmol/L (21-32) Anion Gap 11 (6-14) 12 (6-14) Blood Urea Nitrogen 7 mg/dL (7-20) 6 mg/dL (7-20) Creatinine 1.0 mg/dL (0.6-1.0) 1.0 mg/dL (0.6-1.0) Estimated GFR (Cockcroft-Gault) 63.9 63.9 BUN/Creatinine Ratio 7 (-20) 6 (6-20) Glucose Level 101 mg/dL (70-99) 73 mg/dL (70-99) Calcium Level 8.1 mg/dL (8.5-10.1) 7.9 mg/dL (8.5-10.1) Total Bilirubin 1.5 mg/dL (0.2-1.0) 0.6 mg/dL (0.2-1.0) Aspartate Amino Transf (AST/SGOT) 207 U/L (15-37) 100 U/L (15-37) Alanine Aminotransferase (ALT/SGPT) 89 U/L (14-59) 62 U/L (14-59) Alkaline Phosphatase 321 U/L (46-116) 256 U/L (46-116) Total Protein 6.1 g/dL (6.4-8.2) 5.8 g/dL (6.4-8.2) Albumin 2.5 g/dL (3.4-5.0) 2.3 g/dL (3.4-5.0) Albumin/Globulin Ratio 0.7 (1.0-1.7) 0.7 (1.0-1.7) Lipase 2168 U/L (73-393) 333 U/L (73-393) Laboratory Tests Test 01/01/20 04:55 White Blood Count 7.2 x10^3/uL (4.0-11.0) Red Blood Count 3.36 x10^6/uL (3.50-5.40) Hemoglobin 9.9 g/dL (12.0-15.5) Hematocrit 29.5 % (36.0-47.0) Mean Corpuscular Volume 88 fL (79-100) Mean Corpuscular Hemoglobin 30 pg (25-35) Mean Corpuscular Hemoglobin Concent 34 g/dL (31-37) Red Cell Distribution Width 14.9 % (11.5-14.5) Platelet Count 200 x10^3/uL (140-400) Sodium Level 143 mmol/L (136-145) Potassium Level 3.1 mmol/L (3.5-5.1) Chloride Level 109 mmol/L (98-107) Carbon Dioxide Level 22 mmol/L (21-32) Anion Gap 12 (6-14) Blood Urea Nitrogen 6 mg/dL (7-20) Creatinine 1.0 mg/dL (0.6-1.0) Estimated GFR (Cockcroft-Gault) 63.9 BUN/Creatinine Ratio 6 (6-20) Glucose Level 73 mg/dL (70-99) Calcium Level 7.9 mg/dL (8.5-10.1) Total Bilirubin 0.6 mg/dL (0.2-1.0) Aspartate Amino Transf (AST/SGOT) 100 U/L (15-37) Alanine Aminotransferase (ALT/SGPT) 62 U/L (14-59) Alkaline Phosphatase 256 U/L (46-116) Total Protein 5.8 g/dL (6.4-8.2) Albumin 2.3 g/dL (3.4-5.0) Albumin/Globulin Ratio 0.7 (1.0-1.7) Lipase 333 U/L (73-393) LFT's, lipase improved. Vitals/I & O Vital Sign - Last 24 Hours 12/31/19 12/31/19 12/31/19 12/31/19 14:23 14:53 15:00 19:00 Temp 98.8 99.0 98.8 99.0 Pulse 75 72 Resp 18 16 B/P (MAP) 139/50 (79) 131/53 (79) Pulse Ox 100 90 O2 Delivery Room Air Room Air Room Air Room Air 12/31/19 12/31/19 12/31/19 12/31/19 19:42 20:12 20:15 23:00 Temp 98.9 98.9 Pulse 75 Resp 18 B/P (MAP) 139/46 (77) Pulse Ox 100 O2 Delivery Room Air Room Air Room Air Room Air 01/01/20 01/01/20 01/01/20 01/01/20 03:00 04:40 05:10 07:59 Temp 98.1 98.7 98.1 98.7 Pulse 74 86 Resp 18 18 B/P (MAP) 121/46 (71) 133/63 (86) Pulse Ox 98 90 O2 Delivery Room Air Room Air Room Air Room Air 01/01/20 01/01/20 01/01/20 01/01/20 08:00 08:28 08:37 09:07 Pulse 74 B/P (MAP) 121/46 O2 Delivery Room Air Room Air Room Air O2 Flow Rate 2.0 Intake and Output 12/31/19 12/31/19 01/01/20 14:59 22:59 06:59 Intake Total 180 ml Balance 180 ml Assessment Elevated LFT's, lipase-improved. May have been ductal manipulation, maybe contrast didn't agree. No obstruction. Plan of Care: Continue current Tx, Mgmt Plan of Care Note Observe on diet. Justicifation of Admission Dx: Justifications for Admission: Justification of Admission Dx: Yes MARIA DE JESUS HALL MD Jan 01, 2020 12:10
[2020-01-01] MEDS: POTASSIUM CL 40MEQ IN 0.9%NACL 1,000 ML IV SCH (12:26)
[2020-01-01 15:59] VITALS: BP 143/54
[2020-01-01 19:00] VITALS: BP 144/58
[2020-01-01] MEDS ORDERED: MORP15TA PO (21:26)
[2020-01-01] MEDS ORDERED: SUCR1ORA5 PO (21:30)
[2020-01-01 23:06] VITALS: BP 135/53
[2020-01-02] MEDS: POTASSIUM CL 40MEQ IN 0.9%NACL 1,000 ML IV SCH (00:01)
[2020-01-02] MEDS: ZOLPIDEM 5 MG TABLET. PO PRN (00:02)
[2020-01-02] MEDS: MORPHINE SULFATE 4 MG/ML VIAL. IV PRN ×2 (02:55→08:59)
[2020-01-02 03:06] VITALS: BP 134/54
[2020-01-02 05:43] LABS: ALBUMIN 1.9 g/dL (3.4-5.0); ALBUMIN/GLOBULIN RATIO 0.5 (1.0-1.7); CALCIUM 7.9 mg/dL (8.5-10.1); GFR 63.9; POTASSIUM 3.3 mmol/L (3.5-5.1); TOTAL BILIRUBIN 0.4 mg/dL (0.2-1.0); TOTAL PROTEIN 5.6 g/dL (6.4-8.2)
[2020-01-02] MEDS: LEVOTHYROXINE 88 MCG TABLET PO SCH (05:46)
[2020-01-02] MEDS ORDERED: FLUT9.9S NS (05:57)
[2020-01-02 07:00] VITALS: BP 150/6
[2020-01-02] MEDS ORDERED: SUCRALFATE 1 GM/10 ML ORAL.SUSP. PO SCH (07:30)
--- NOTE | 2020-01-02 08:57 | PDOC ---
SURGICAL PROGRESS NOTE Subjective tolerating diet--not a fan of the food here no emesis some flatus, no stool chronic pain issues Vital Signs Vital Signs Date Time Temp Pulse Resp B/P (MAP) Pulse Ox O2 Delivery O2 Flow Rate FiO2 01/02/20 07:00 98.3 80 16 150/6 (54) 93 Room Air 98.3 01/01/20 08:00 2.0 I&O Intake and Output 01/02/20 07:00 Intake Total 1000 ml Output Total 0 ml Balance 1000 ml IV Total 1000 ml Output Urine Total 0 ml # Voids 3 General: Alert, Oriented X3, Cooperative Abdomen: Soft, Other (lap sites dry, incisional TTP) Labs Laboratory Tests Test 01/01/20 04:55 01/02/20 03:55 White Blood Count 7.2 x10^3/uL (4.0-11.0) Red Blood Count 3.36 x10^6/uL (3.50-5.40) Hemoglobin 9.9 g/dL (12.0-15.5) Hematocrit 29.5 % (36.0-47.0) Mean Corpuscular Volume 88 fL (79-100) Mean Corpuscular Hemoglobin 30 pg (25-35) Mean Corpuscular Hemoglobin Concent 34 g/dL (31-37) Red Cell Distribution Width 14.9 % (11.5-14.5) Platelet Count 200 x10^3/uL (140-400) Sodium Level 143 mmol/L (136-145) 143 mmol/L (136-145) Potassium Level 3.1 mmol/L (3.5-5.1) 3.3 mmol/L (3.5-5.1) Chloride Level 109 mmol/L (98-107) 110 mmol/L (98-107) Carbon Dioxide Level 22 mmol/L (21-32) 25 mmol/L (21-32) Anion Gap 12 (6-14) 8 (6-14) Blood Urea Nitrogen 6 mg/dL (7-20) 6 mg/dL (7-20) Creatinine 1.0 mg/dL (0.6-1.0) 1.0 mg/dL (0.6-1.0) Estimated GFR (Cockcroft-Gault) 63.9 63.9 BUN/Creatinine Ratio 6 (6-20) 6 (6-20) Glucose Level 73 mg/dL (70-99) 83 mg/dL (70-99) Calcium Level 7.9 mg/dL (8.5-10.1) 7.9 mg/dL (8.5-10.1) Total Bilirubin 0.6 mg/dL (0.2-1.0) 0.4 mg/dL (0.2-1.0) Aspartate Amino Transf (AST/SGOT) 100 U/L (15-37) 54 U/L (15-37) Alanine Aminotransferase (ALT/SGPT) 62 U/L (14-59) 39 U/L (14-59) Alkaline Phosphatase 256 U/L (46-116) 186 U/L (46-116) Total Protein 5.8 g/dL (6.4-8.2) 5.6 g/dL (6.4-8.2) Albumin 2.3 g/dL (3.4-5.0) 1.9 g/dL (3.4-5.0) Albumin/Globulin Ratio 0.7 (1.0-1.7) 0.5 (1.0-1.7) Lipase 333 U/L (73-393) 136 U/L (73-393) Laboratory Tests Test 01/02/20 03:55 Sodium Level 143 mmol/L (136-145) Potassium Level 3.3 mmol/L (3.5-5.1) Chloride Level 110 mmol/L (98-107) Carbon Dioxide Level 25 mmol/L (21-32) Anion Gap 8 (6-14) Blood Urea Nitrogen 6 mg/dL (7-20) Creatinine 1.0 mg/dL (0.6-1.0) Estimated GFR (Cockcroft-Gault) 63.9 BUN/Creatinine Ratio 6 (6-20) Glucose Level 83 mg/dL (70-99) Calcium Level 7.9 mg/dL (8.5-10.1) Total Bilirubin 0.4 mg/dL (0.2-1.0) Aspartate Amino Transf (AST/SGOT) 54 U/L (15-37) Alanine Aminotransferase (ALT/SGPT) 39 U/L (14-59) Alkaline Phosphatase 186 U/L (46-116) Total Protein 5.6 g/dL (6.4-8.2) Albumin 1.9 g/dL (3.4-5.0) Albumin/Globulin Ratio 0.5 (1.0-1.7) Lipase 136 U/L (73-393) Assessment/Plan s/p lap olga lidia labs improved stable surgically can dc when primary ready Justicifation of Admission Dx: Justifications for Admission: Justification of Admission Dx: Yes MONTY COUCH PRIMARY CARE NURSE PRACTITIONER Jan 02, 2020 08:57
[2020-01-02] MEDS: METOCLOPRAMIDE 10 MG TABLET. PO SCH (08:58)
[2020-01-02 08:59] VITALS: BP 150/60
[2020-01-02] MEDS: PANTOPRAZOLE 40 MG TABLET.DR. PO SCH (08:59)
[2020-01-02] MEDS: GABAPENTIN 100 MG CAPSULE. PO SCH (08:59)
[2020-01-02] MEDS: amLODIPine BESYLATE 5 MG TABLET PO SCH (08:59)
[2020-01-02] MEDS: DOCUSATE SODIUM 100 MG CAPSULE. PO SCH (09:00)
[2020-01-02] MEDS: KETOTIFEN FUMARATE 0.025% OPHTH SOLUTION BOTTLE. OD SCH (09:00)
--- NOTE | 2020-01-02 11:17 | PDOC ---
Subjective: Subjective: Feeling better. Tolerating diet but doesn't like the eggs. Going home today. Still has some abdominal pain but really her fibromyalgia pain is the worst. Objective: Vital Signs: Vital Signs Date Time Temp Pulse Resp B/P (MAP) Pulse Ox O2 Delivery O2 Flow Rate FiO2 01/02/20 09:29 Room Air 01/02/20 08:59 80 150/60 01/02/20 07:00 98.3 16 93 98.3 01/01/20 08:00 2.0 Labs: Laboratory Tests Test 01/02/20 03:55 Sodium Level 143 mmol/L Potassium Level 3.3 mmol/L Chloride Level 110 mmol/L Carbon Dioxide Level 25 mmol/L Anion Gap 8 Blood Urea Nitrogen 6 mg/dL Creatinine 1.0 mg/dL Estimated GFR (Cockcroft-Gault) 63.9 BUN/Creatinine Ratio 6 Glucose Level 83 mg/dL Calcium Level 7.9 mg/dL Total Bilirubin 0.4 mg/dL Aspartate Amino Transf (AST/SGOT) 54 U/L Alanine Aminotransferase (ALT/SGPT) 39 U/L Alkaline Phosphatase 186 U/L Total Protein 5.6 g/dL Albumin 1.9 g/dL Albumin/Globulin Ratio 0.5 Lipase 136 U/L PE: GEN: NAD LUNGS: CTAB HEART: RRR ABD: soft, NABS NEURO/PSYCH: A & O 3 A/P: Calculous cholecystitis s/p cholecystectomy Elevated LFTs and lipase - resolving H/o GERD, ?presbyesophagus, colon polyps -- Seen prior to DC, d/w Dr. Churchill. F/u w/ GI PRN. Justicifation of Admission Dx: Justifications for Admission: Justification of Admission Dx: Yes REYMUNDO BAKER Jan 02, 2020 11:17
--- NOTE | 2020-01-02 12:30 | NUR ---
patient discharged at approximately 1054. Patient verbalized understanding of discharge instructions. Patient was taken by wheelchair to main entrance. awaiting in car. Prescriptions were given.
== END 2020-01-02 10:58 | disposition home or self-care (01) | DRG 417 ==
LOC: 4 NORTH 20:00
PROVIDERS: ADMIT Internal Medicine; ATTEND Internal Medicine
PROC: 0FT44ZZ Resection of Gallbladder, Percutaneous Endoscopic Approach (ICD-10-PCS; principal; 2019-12-28)
PROC: BF101ZZ Fluoroscopy of Bile Ducts using Low Osmolar Contrast (ICD-10-PCS; 2019-12-28)
DX: K81.0 Acute cholecystitis (principal); E43 Unspecified severe protein-calorie malnutrition; K85.10 Biliary acute pancreatitis without necrosis or infection; E03.9 Hypothyroidism, unspecified; I10 Essential (primary) hypertension; M79.7 Fibromyalgia; M81.0 Age-related osteoporosis without current pathological fracture; Z20.828 Contact with and (suspected) exposure to other viral communicable diseases; K82.8 Other specified diseases of gallbladder; K21.9 Gastro-esophageal reflux disease without esophagitis; E87.6 Hypokalemia; H90.3 Sensorineural hearing loss, bilateral; M19.90 Unspecified osteoarthritis, unspecified site; Z82.49 Family history of ischemic heart disease and other diseases of the circulatory system; Z82.5 Family history of asthma and other chronic lower respiratory diseases; Z83.3 Family history of diabetes mellitus; Z86.711 Personal history of pulmonary embolism; Z87.891 Personal history of nicotine dependence; Z88.8 Allergy status to other drugs, medicaments and biological substances; Z79.899 Other long term (current) drug therapy; Z68.30 Body mass index [BMI] 30.0-30.9, adult
CPT/HCPCS: 36415; 74300; 76705; 80053; 83690; 85025; 85027; 88304; 93005; A7015; J0690; J1100; J1170; J2270; J2405; J2704; J2710; J3010; J3480; J3490; J7030; J7120; Q9967; G0378; U0003-CS